=== PATIENT | male | born 1950 | race Caucasian/White ===

== ENCOUNTER 2019-04-16 21:41 | Inpatient (IN) | payer OTHER ==
[~2019-04-16] VITALS: Ht 175.3 cm; Wt 108.9 kg
[~2019-04-16 21:41] MED LIST: ANDROGEL75 GM PO; ASPIRIN325 PO; ASPIRIN81 M2 PO; ATORVASTATIN CA20 MG PO; CALCIUM 600 +1 EA11 PO; CHLORTHALIDONE25 MG PO; EFFIENT10 MG PO; LACTASE 3000U T1 TA1 PO; LISINOPRIL20 MG PO; MULTIVITAMINS1 EAC7 PO; NORVASC 5 MG TAB5 MG PO; OMEGA-31000 M1 PO; SLO-NIACIN500 MG PO; TOPROL XL50 MG PO; VITAMIN D-32000 UNIT PO
[2019-04-16 21:42] VITALS: BP 160/74
[2019-04-16] MEDS ORDERED: ASPIR 8181 MG PO (21:51)
[2019-04-16] MEDS ORDERED: NIACIN PO (22:01)
[2019-04-16] MEDS ORDERED: CIALIS5 MG PO (22:03)
[2019-04-16 22:19] LABS: ABSOLUTE NEUTROPHILS 14.6 thou/uL (1.4-8.2); BASOPHILS 0.1 % (0.0-2.0); EOSINOPHILS 0.2 % (0.0-3.0); HEMATOCRIT 45.8 % (42.0-52.0); HEMOGLOBIN 15.5 gm/dL (14.0-18.0); LYMPHOCYTES 4.3 % (24.0-44.0); MCH 32.7 pg (26.0-34.0); MCHC 33.8 g/dL (28.0-37.0); MCV 96.8 fL (80.0-100.0); MONOCYTES 7.4 % (1.0-8.0); PLATELET COUNT 145 thou/uL (150-400); RBC 4.73 mil/uL (4.50-6.00); RDW 12.6 % (10.5-14.5); WBC 16.6 thou/uL (4.0-11.0)
[2019-04-16 22:29] LABS: ANION GAP 12 mmol/L (7-16); BUN 14 mg/dL (7-18); CALCIUM 9.4 mg/dL (8.5-10.1); CHLORIDE 104 mmol/L (98-107); CO2 26 mmol/L (21-32); GLUCOSE 228 mg/dL (74-106); POTASSIUM 4.1 mmol/L (3.5-5.1); SODIUM 142 mmol/L (136-145)
[2019-04-16 22:38] LABS: TROPONIN-I <0.06 ng/mL (<0.06)
[2019-04-16 23:06] VITALS: BP 160/74
[2019-04-16 23:27] VITALS: BP 127/54
[2019-04-17] VITALS (12 sets, daily range): BP systolic 130–165; BP diastolic 66–92
--- NOTE | 2019-04-17 04:31 | NUR ---
PATIENT IS ALERT AND ORIENTED. PATIENT IS SBA. PATIENT IS ON ROOM AIR. 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 PATIENT DENIES CHEST PAIN. PATIENTS LBM WAS THE 6TH. PATIENT IS NPO DUE TO PENDING STRESS TEST TODAY. PATIENT IS RESTING COMFORTABLY IN BED. WCM. PATIENT IS PROGRESSING TO GOALS.
--- NOTE | 2019-04-17 08:57 | EKG ---
[address] [employer] [place] [address] ELECTROCARDIOGRAM REPORT Name: YAMEL CAVANAUGH Room #: 357-P ADM IN M.R.#: [id number] Admission: 04/16/19 Attend Phys: Carlos Philip MD Discharge: Date of : 46 Report #: [id number] THIS REPORT FOR: //name// [facility] ED Test Date: 2019-04-16 Test Time: 21:45:34 Pat Name: YAMEL CAVANAUGH Department: Room: 357 Gender: M Sports Intern: MELODY : 1950 Requested By: Jose Lerma Order Number: [id number] MD: Charles Burns Measurements Intervals [place] Rate: 68 P: PA: QRS: -24 QRSD: 95 T: 24 QT: 389 QTc: 414 Interpretive Statements Sinus rhythm Poor R wave progression Compared to ECG 05/01/2013 18:13:15 Ventricular premature complex(es) no longer present Electronically Signed On 04-17-2019 8:57:29 CDT by Charles Burns [email or web address] <ELECTRONICALLY SIGNED> By: Charles Burns MD, [facility] 04/17/19 0857 44 44 Charles Burns MD, [facility] /EPI
--- NOTE | 2019-04-17 10:10 | NUR ---
ASSESSMENT: CM REVIEWED CHART AND MET WITH PATIENT AT THE BEDSIDE. PT WAS ADMITTED WITH CHEST PAIN. PT REPORTS HE LIVES IN AN RV WITH HIS . PT REPORTS HE HAS ABOUT 5 STEPS TO ENTER WITH NO STEPS ONCE INSIDE. PT REPORTS HE IS INDEPENDENT WITH ADLS AND AMBULATION. PT REPORTS HE HAS NOT HAD HH IN THE PAST OR BEEN TO A SNF. PT REPORTS THAT HE PLANS TO BE IN [place] AT THIS TIME NEXT MONTH AND THEY LIKE TO TRAVEL IN THEIR RV. PT REPORTS HE IS TO GO TO [employer]IAL DRILL [facility]PER[facility] FOR PLASTIC TODAY. PT DOES NOT ANTICIPATE HAVING ANY NEEDS AT DISCHGARGE. CM WILL CONTINUE TO FOLLOW TO ASSIST NEEDED.
--- NOTE | 2019-04-17 12:50 | 2DMMODE ---
[facility] [address] [place] [address] 2 D/M-MODE ECHOCARDIOGRAM Name: YAMEL CAVANAUGH Room #: 357-P ADM IN M.R.#: [id number] Admission: 04/16/19 Attend Phys: Ct Montoya, Discharge: Date of : 46 Report #: [id number] THIS REPORT FOR: //name// APPROVED REPORT Study performed: 04/17/2019 11:05:28 EXAM: Comprehensive 2D, Doppler, and color-flow Echocardiogram Patient Location: Echo lab Room #: 357 Status: routine BSA: 2.25 HR: 57 bpm BP: 160/92 mmHg Rhythm: NSR Other Information Study Quality: Adequate Indications Chest Pain Hx: Cardiac stents, Iscemic cardiomyopathy, HTN, HLP. 2D Dimensions RVDd: 36.30 mm IVSd: 12.00 (7-11mm) LVOT Diam: 20.28 (18-24mm) LVDd: 54.59 mm PWd: 10.10 (7-11mm) Ascending Ao: 33.03 (22-36mm) LVDs: 40.40 (25-40mm) Aortic Root: 33.87 mm Volumes Left Atrial Volume (Systole) Single Plane 4CH: 48.48 mL Single Plane 2CH: 52.90 mL LA ESV Index: 24.00 mL/m2 Aortic Valve AoV Peak Roosevelt.: 1.18 m/s AO Peak Gr.: 5.57 mmHg LVOT Max P.90 mmHg LVOT Max V: 0.99 m/s JANNY Vmax: 2.70 cm2 Mitral Valve E/A Ratio: 1.2 MV Decel. Time: 226.[address] [facility] [address] [place] [address] 2 D/M-MODE ECHOCARDIOGRAM Name: YAMEL CAVANAUGH Room #: 357-[facility] IN [facility]#: [id number] Admission: 04/16/19 Attend Phys: Ct Montoya, Discharge: Date of : 46 Report #: [id number] MV E Max Roosevelt.: 0.93 m/s MV A Roosevelt.: 0.79 m/s MV PHT: 65.71 ms IVRT: 92.27 ms Pulmonary Valve PV Peak Roosevelt.: 0.86 m/s PV Peak Gr.: 2.98 mmHg Pulmonary Vein P Vein S: 0.51 m/s P Vein A: 0.31 m/s P Vein D: 0.41 m/s P Vein A Dur.: 156.9 msec P Vein S/D Ratio: 1.24 Tricuspid Valve TR Peak Roosevelt.: 2.21 m/s RAP Estimate: 5.00 mmHg TR Peak Gr.: 20.00 mmHg PA Pressure: 25.00 mmHg Left Ventricle The left ventricle is normal size. There is normal LV segmental wall motion. Mild basal septal hypertrophy is present. Left ventricular systolic function is normal. LVEF is 55%. Moderate diastolic dysfunction is present (pseudonormal filling). Right Ventricle The right ventricle is normal size. The right ventricular systolic function is normal. Atria The left atrium size is normal. The right atrium size is normal. Aortic Valve The aortic valve is mildly calcified. No aortic regurgitation is present. There is no aortic valvular stenosis. Mitral Valve The mitral valve is normal in structure. Trace to mild mitral regurgitation. Tricuspid Valve The tricuspid valve is normal in structure. Trace tricuspid regurgitation. Estimated PAP is 25mmHg. Pulmonic Valve The pulmonary valve is normal in structure. Mild pulmonic [facility] [address] [place] [address] 2 D/M-MODE ECHOCARDIOGRAM Name: YAMEL CAVANAUGH Room #: 357-P [facility] IN M.R.#: [id number] Admission: 04/16/19 Attend Phys: Ct Montoya, Discharge: Date of : 46 Report #: [id number] regurgitation. Great Vessels The aortic root is normal in size. The ascending aorta is normal in size. IVC is normal in size and collapses >50% with inspiration. Pericardium There is no pericardial effusion. <Conclusion> Left ventricular systolic function is normal. There is normal LV segmental wall motion. LVEF is 55%. Moderate diastolic dysfunction The aortic valve is mildly calcified. No aortic regurgitation or stenosis The mitral valve is normal in structure. Trace to mild mitral regurgitation. Trace tricuspid regurgitation. Estimated pulmonary artery pressure of 25mmHg. There is no pericardial effusion. <ELECTRONICALLY SIGNED> By: Charles Burns MD, FACC 04/17/19 1250 49 49 Charles Burns MD, FACC /INF
--- NOTE | 2019-04-17 13:15 | NUR ---
PT TO ORDER PACKER OR PACKAGER VIA BED.
--- NOTE | 2019-04-17 15:00 | NUR ---
NOTED PT TRANSFERED TO CCU REPORT CALLED
--- NOTE | 2019-04-17 17:56 | NUR ---
PT TRANSFERED FROM [facility]. HAD STENT PLACED TODAY. RIGHT GROIN INCISION C/D/I. NO HEMATOMA NOTED. ON BEDREST FOR 3 HOURS. NO CARDIAC OR RESPIRATORY DISTRESS NOTED. WILL CONTINUE TO MONITOR.
[2019-04-18 05:02] VITALS: BP 139/78
[2019-04-18 05:10] LABS: HEMATOCRIT 44.9 % (42.0-52.0); HEMOGLOBIN 15.3 gm/dL (14.0-18.0); MCH 32.9 pg (26.0-34.0); MCHC 34.1 g/dL (28.0-37.0); MCV 96.5 fL (80.0-100.0); RBC 4.65 mil/uL (4.50-6.00); RDW 12.7 % (10.5-14.5); WBC 8.1 thou/uL (4.0-11.0)
[2019-04-18 05:14] LABS: POTASSIUM 3.6 mmol/L (3.5-5.1)
[2019-04-18 05:20] LABS: APTT 24.2 Seconds (24.5-32.8)
[2019-04-18 05:34] LABS: CHOLESTEROL 104 mg/dL (<200); HDL CHOLESTEROL 39 mg/dL (>40); TC:HDL 2.7 Ratio (Not establshd)
--- NOTE | 2019-04-18 06:05 | NUR ---
PATIENTS CARES WERE ASSUMED AT SHIFT CHANGE. PATIENT WAS ASSESSED AND MEDS WERE PASSED. PATIENT WAS UP FROM BED REST AT 1950. PATIENT DANGLED AT THE BEDSIDE WHILE HE EAT HIS DINNER THAT WAS SAVED FOR HIM. HOURLY ROUNDING WAS DONE. THE BED REMAINED IN A LOW AND LOCKED POSITION. THE BED ALARM IS ON.
[2019-04-18 06:06] LABS: GLYCOHEMOGLOBIN (HGB A1C) 5.7 % (4.8-5.6)
[2019-04-18 06:15] LABS: LDL CHOLESTEROL 27 mg/dL (<100); TRIGLYCERIDE 194 mg/dL (<150); VLDL 39 mg/dL (<40)
[2019-04-18 06:17] LABS: SERUM ASSESSMENT Clear
--- NOTE | 2019-04-18 08:06 | EKG ---
[address] [place] [address] ELECTROCARDIOGRAM REPORT Name: YAMEL CAVANAUGH Room #: 209-P ADM IN M.R.#: [id number] Admission: 04/16/19 Attend Phys: Ct Montoya MD Discharge: Date of : 46 Report #: [id number] THIS REPORT FOR: //name// [facility] Test Date: 2019-04-18 Test Time: 07:59:11 Pat Name: YAMEL CAVANAUGH Department: Room: 209 P Gender: M Supervisor [employer]: jb : 1950 Requested By: Randy Christian Order Number: [id number] MD: Charles Burns Measurements Intervals [place] Rate: 58 P: 4 VT: 188 QRS: -25 QRSD: 91 T: 50 QT: 393 QTc: 386 Interpretive Statements Sinus rhythm Ventricular premature complex Borderline left axis deviation Probable inferior infarct, age indeterminate Poor R wave progression Compared to ECG 04/16/2019 21:45:34 Ventricular premature complex(es) now present Electronically Signed On 04-18-2019 8:06:41 CDT by Charles Burns [email or web address] <ELECTRONICALLY SIGNED> By: Charles Burns MD, [facility] 04/18/19 [id number] [id number] Charles Burns MD, [facility] /EPI
[2019-04-18] MEDS ORDERED: ASPIRIN325 PO (08:14)
[2019-04-18] MEDS ORDERED: EFFIENT10 MG PO (08:14)
[2019-04-18 08:26] VITALS: BP 153/83
[2019-04-18 11:13] VITALS: BP 153/83
--- NOTE | 2019-04-18 12:13 | NUR ---
ASSUMED CARE AT SHIFT CHANGE, ALERT AND ORIENTED X4. DENIES AND CP OR DISOCMFORT. RT GRION SITE LOOKS D/C/I. VSS AND SR ON THE MONITOR. AND WILL CONTINUE WITH POC.
--- NOTE | 2019-04-18 15:14 | CATHLAB ---
[facility] [address] [email or web address] [address] INVASIVE PROCEDURE REPORT Name: YAMEL CAVANAUGH Room #: 209-P [facility] IN ..#: [id number] Admission: 04/16/19 Attend Phys: Ct Montoya, Discharge: 04/18/19 Date of : 46 Report #: [id number] THIS REPORT FOR: //name// APPROVED REPORT Study performed: 04/17/2019 13:33:39 Patient Details Patient Status: In-Patient Room #: The patient is a 68 year-old male Event Personnel Randy Christian Baby Stroller Rental Clerk, Anneliese Robles RN RN, Yen Chowdary RTR, CHRISTI Scrub, Jess Harrison RTR Scrub, Taylor Mcleod RTR Monitor, Yamel Jackson Monitor Procedures Performed Art Access - R femoral artery* Left Heart Cath w/or w/o Coronaries [id number] [facility] Aortogram Abdominal Peripheral Angio 696464 PHIL Place w/wo Plasty Single RCA 022325 41182 Initial Mod Sed Same Phys/QHP Gr5y 303588 82587 Mod Sed Same Phys/QHP Ea 606180 Hemostasis w/ Mynx Indication Chest pain Procedure Narrative The Right Groin^ was infiltrated with 1% Lidocaine subcutaneous anesthesia. A PINNACLE 6FR Sheath #[id number] sheath was inserted into the RFA^. Coronary angiography was performed using coronary diagnostic catheters. The right coronary system was accessed and visualized with a JR4 catheter. The left coronary system was accessed and visualized with a JL4 catheter. The left ventricle was accessed and visualized with a pigtail catheter. An aortogram of the abdominal aorta was performed. Closure device was deployed with a Fr MYNXGRIP 6/7F #[id number]. Hemostasis was obtained with manual pressure following sheath removal without any complications. The patient tolerated the procedure well and there were no complications associated with the procedure. There was no hematoma. Intraoperative Conscious Sedation Sedation start time: 1354 Case end Time: 1546 Fentanyl 300 mcg Versed 6.[address] [address] INVASIVE PROCEDURE REPORT Name: AFSHANYAMEL SCOTT Room #: 209-P [facility] IN ..#: [id number] Admission: 04/16/19 Attend Phys: Ct Montoya, Discharge: 04/18/19 Date of : 46 Report #: [id number] Fluoro Time: 41.11 minutes Dose: DAP 65525.10 cGycm2 6505 mGy Contrast Type and Amount: Visipaque 275 ml IVUS Findings Sprinter OTW 2.5 x 12 #[id number] Hemodynamics The aortic pressure is 180/67 mmHg with a mean of 93 mmHg. The left ventricular pressure is 154/18 mmHg with a mean of mmHg. The left ventricular end diastolic pressure is 31 mmHg. PCI Technique Lesion Percutaneous coronary intervention was performed on the mid right coronary artery. A VISTA 6FR JR 4 #[id number] Guide Catheter was used to engage the ostium. A Luge Wire .014 x 182CM #[id number] Interventional Guidewire was used to cross the lesion. BALLOON DILATION A Balloon catheter Sprinter OTW 1.5 x 12 #[id number] was inserted and inflated up to 18.00atm for 33seconds. Additional Inflation: 20.00atm for 23seconds. STENT DEPLOYMENT A drug-eluting stent RESOLUTE CRISTOFER OTW 3.0 X 12 #[id number] was inserted and inflated up to 18.00atm for 28seconds. POST STENT DEPLOYMENT BALLOON DILATION A Balloon catheter TREK NC OTW 3.0 X 12 #[id number] was inserted and inflated up to 24.00atm for 40seconds. BALLOON DILATION A Balloon catheter Sprinter OTW 2.5 x 12 #[id number] was inserted and inflated up to 18.00atm for 30seconds. Additional Inflation: 20.00atm for 28seconds. POST STENT DEPLOYMENT BALLOON DILATION A Balloon catheter TREK NC OTW 3.25 X 12 #[id number] was inserted and inflated up to 22.00atm for 26seconds. 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 Dilated and eventually placed a 30 resolute stent and postdilated 3.3 mm JULIENNE grade 3 flow. There is a moderate 50-60% distal lesion in previously placed stents will follow. [facility] [address] [place] [address] INVASIVE PROCEDURE REPORT Name: YAMEL CAVANAUGH Room #: 209-P [facility] IN M.R.#: [id number] Admission: 04/16/19 Attend Phys: Ct Montoya, Discharge: 04/18/19 Date of : 46 Report #: [id number] #2 left main mildly disease giving rise to LAD and circumflex #3 the LAD extends to the apex with mild irregularities no occlusive disease #4 the circumflex is nondominant there is a moderate first OM and then this vessel essentially occludes and a previously placed stent. There is some filling through what appears to be a NIPPING MACHINE OPERATOR. This appears as the last catheterization did. #5 normal left jugular size and systolic function EF 55% #6 abdominal aorta is mildly ectatic calcification is moderate but no significant aneurysm is noted. Recommendations and plan: Difficult procedure through this apparent NIPPING MACHINE OPERATOR in dominant RCA with multiple prior stents. Eventual result was quite good. We'll utilize dual antiplatelet therapy. May be considering knee operation I would want to wait 6 months. To CCU to follow post stent protocol. <ELECTRONICALLY SIGNED> By: Randy Christian MD, FACC 04/18/19 1514 1514 151 Randy Christian MD, [facility]ACC /INF
== END 2019-04-18 12:50 | disposition home or self-care (01) | DRG 246 ==
LOC: ER 21:41 → 3W 22:47 → 2N 22:47 → EROBS 22:47 → 3W 23:27 → 2N 04-17 15:14 → ENTRNSPT 04-18 12:33 → EDTRNSPTSTS 04-18 12:34 → 2N 04-18 12:50
PROVIDERS: Emergency Medicine; Nurse Practitioner Acute Care; Nurse Practitioner Adult Health; ADMIT Internal Medicine
PROC: 4A023N7 Measurement of Cardiac Sampling and Pressure, Left Heart, Percutaneous Approach (ICD-10-PCS; principal; 2019-04-18)
PROC: 3E0234Z Introduction of Serum, Toxoid and Vaccine into Muscle, Percutaneous Approach (ICD-10-PCS; principal; 2019-04-18)
PROC: 027034Z Dilation of Coronary Artery, One Artery with Drug-eluting Intraluminal Device, Percutaneous Approach (ICD-10-PCS; principal; 2019-04-18)
PROC: B211YZZ Fluoroscopy of Multiple Coronary Arteries using Other Contrast (ICD-10-PCS; principal; 2019-04-18)
PROC: B410YZZ Fluoroscopy of Abdominal Aorta using Other Contrast (ICD-10-PCS; principal; 2019-04-18)
DX: I25.10 Atherosclerotic heart disease of native coronary artery without angina pectoris (principal); I50.33 Acute on chronic diastolic (congestive) heart failure; Z96.651 Presence of right artificial knee joint; E78.5 Hyperlipidemia, unspecified; I10 Essential (primary) hypertension; D72.829 Elevated white blood cell count, unspecified; R73.9 Hyperglycemia, unspecified; L25.9 Unspecified contact dermatitis, unspecified cause; I25.5 Ischemic cardiomyopathy; R21 Rash and other nonspecific skin eruption; I08.1 Rheumatic disorders of both mitral and tricuspid valves; Z95.5 Presence of coronary angioplasty implant and graft; I25.2 Old myocardial infarction; Z90.49 Acquired absence of other specified parts of digestive tract; Z79.82 Long term (current) use of aspirin; Z79.899 Other long term (current) drug therapy; Z87.891 Personal history of nicotine dependence; Z82.49 Family history of ischemic heart disease and other diseases of the circulatory system; Z80.42 Family history of malignant neoplasm of prostate; Z23 Encounter for immunization
CPT/HCPCS: 10081; 10779; 10879

== ENCOUNTER → 2019-12-11 | Outpatient (CLI) | payer OTHER ==
[~2019-12-11] MED LIST changes: +ASPIR 8181 MG PO; +CIALIS5 MG PO; +NIACIN PO
== END ==
LOC: SJCVC 11:19
DX: I25.118 Atherosclerotic heart disease of native coronary artery with other forms of angina pectoris (principal); I10 Essential (primary) hypertension; E78.00 Pure hypercholesterolemia, unspecified; I42.9 Cardiomyopathy, unspecified; Z87.891 Personal history of nicotine dependence; Z79.82 Long term (current) use of aspirin; Z79.899 Other long term (current) drug therapy

== ENCOUNTER → 2020-01-01 | Outpatient (CLI) | payer OTHER | LOC: SJCVCIMAG 07:27 | PROVIDERS: ATTEND Internal Medicine Cardiovascular Disease | DX: I49.3 Ventricular premature depolarization (principal); I49.1 Atrial premature depolarization; I25.10 Atherosclerotic heart disease of native coronary artery without angina pectoris; I10 Essential (primary) hypertension; E78.5 Hyperlipidemia, unspecified; Z87.891 Personal history of nicotine dependence; Z79.82 Long term (current) use of aspirin; Z79.899 Other long term (current) drug therapy ==

== ENCOUNTER → 2020-04-15 | Outpatient (CLI) | payer OTHER | LOC: SJCVC 10:52 | PROVIDERS: ATTEND Internal Medicine Cardiovascular Disease | DX: I25.10 Atherosclerotic heart disease of native coronary artery without angina pectoris (principal); R94.31 Abnormal electrocardiogram [ECG] [EKG]; I10 Essential (primary) hypertension; I25.5 Ischemic cardiomyopathy; E78.00 Pure hypercholesterolemia, unspecified; R00.1 Bradycardia, unspecified; Z79.899 Other long term (current) drug therapy; Z87.891 Personal history of nicotine dependence ==

== ENCOUNTER → 2020-12-06 | Outpatient (CLI) | payer OTHER | LOC: SJCVCIMAG 07:24 | PROVIDERS: ATTEND Internal Medicine Cardiovascular Disease | DX: I25.10 Atherosclerotic heart disease of native coronary artery without angina pectoris (principal); I49.3 Ventricular premature depolarization; I10 Essential (primary) hypertension; I25.5 Ischemic cardiomyopathy; E78.00 Pure hypercholesterolemia, unspecified; R06.00 Dyspnea, unspecified; R53.83 Other fatigue; Z95.5 Presence of coronary angioplasty implant and graft; Z79.899 Other long term (current) drug therapy; Z86.16 Personal history of COVID-19; Z87.891 Personal history of nicotine dependence ==

== ENCOUNTER → 2021-04-10 | Outpatient (CLI) | payer OTHER | LOC: SJCVC 13:44 | PROVIDERS: ATTEND Internal Medicine Cardiovascular Disease | DX: R94.31 Abnormal electrocardiogram [ECG] [EKG] (principal); R00.1 Bradycardia, unspecified; I25.10 Atherosclerotic heart disease of native coronary artery without angina pectoris; I10 Essential (primary) hypertension; E78.00 Pure hypercholesterolemia, unspecified; I25.5 Ischemic cardiomyopathy; M19.90 Unspecified osteoarthritis, unspecified site; Z87.891 Personal history of nicotine dependence; Z79.82 Long term (current) use of aspirin; Z79.899 Other long term (current) drug therapy; Z72.89 Other problems related to lifestyle ==